=== PATIENT | female | born 1950 | race Native Hawaiian/Other Pacific Islander ===

== ENCOUNTER 2023-03-11 09:06 | Outpatient (CLI) | payer OTHER | END 2023-03-11 19:01 | disposition home or self-care (01) | LOC: RAD 09:06 | PROVIDERS: ATTEND Student in an Organized Health Care Education/Training Program | DX: M54.16 Radiculopathy, lumbar region (principal); M48.062 Spinal stenosis, lumbar region with neurogenic claudication; M47.816 Spondylosis without myelopathy or radiculopathy, lumbar region; M96.1 Postlaminectomy syndrome, not elsewhere classified; M54.12 Radiculopathy, cervical region; M47.812 Spondylosis without myelopathy or radiculopathy, cervical region ==

== ENCOUNTER 2023-03-26 08:32 | Outpatient (CLI) | payer OTHER | END 2023-03-26 19:14 | disposition home or self-care (01) | LOC: CT 08:32 | PROVIDERS: ATTEND Student in an Organized Health Care Education/Training Program | DX: M54.12 Radiculopathy, cervical region (principal); M47.812 Spondylosis without myelopathy or radiculopathy, cervical region; M80.08XA Age-related osteoporosis with current pathological fracture, vertebra(e), initial encounter for fracture ==

== ENCOUNTER 2023-04-08 09:06 | Outpatient (CLI) | payer OTHER | END 2023-04-08 18:52 | disposition home or self-care (01) | LOC: NM 09:06 | PROVIDERS: ATTEND Physician Assistant | DX: M80.08XA Age-related osteoporosis with current pathological fracture, vertebra(e), initial encounter for fracture (principal) | CPT/HCPCS: A9561 ==

== ENCOUNTER 2023-05-19 12:10 | Outpatient (CLI) | payer OTHER | END 2023-05-19 20:25 | disposition home or self-care (01) | LOC: MRI 12:10 → CT 12:10 | PROVIDERS: ATTEND Student in an Organized Health Care Education/Training Program | DX: G89.4 Chronic pain syndrome (principal) ==

== ENCOUNTER 2023-06-17 10:53 | Outpatient (CLI) | payer OTHER ==
[2023-06-17 11:43] LABS: PLATELET COUNT 277 K/uL (152-353)
[2023-06-17 11:50] LABS: POTASSIUM 3.2 mmol/L (3.6-5.2)
== END 2023-06-17 19:17 | disposition home or self-care (01) ==
LOC: LABW 10:53
PROVIDERS: ATTEND Physical Medicine & Rehabilitation Pain Medicine
DX: Z01.818 Encounter for other preprocedural examination (principal); M48.062 Spinal stenosis, lumbar region with neurogenic claudication; Z79.02 Long term (current) use of antithrombotics/antiplatelets; R23.3 Spontaneous ecchymoses
CPT/HCPCS: 36415; 80048; 85027; 85610

== ENCOUNTER 2023-07-08 10:48 | Outpatient (CLI) | payer OTHER ==
[2023-07-08 11:25] LABS: POTASSIUM 3.8 mmol/L (3.6-5.2)
[2023-07-08 12:28] LABS: PLATELET COUNT 257 K/uL (152-353)
== END 2023-07-08 19:51 | disposition home or self-care (01) ==
LOC: LABW 10:48
PROVIDERS: ATTEND Physical Medicine & Rehabilitation Pain Medicine
DX: Z01.818 Encounter for other preprocedural examination (principal); Z79.1 Long term (current) use of non-steroidal anti-inflammatories (NSAID); R23.3 Spontaneous ecchymoses
CPT/HCPCS: 36415; 80048; 85027; 85610